=== PATIENT | female | born 1965 | race Caucasian/White ===

== ENCOUNTER 2020-02-25 07:50 | Outpatient (CLI) | payer BC, SELFPAY ==
--- NOTE | ~2020-02-25 | CT_ITS ---
EXAMINATION: CT soft tissue neck w con EXAM DATE: 02/25/2020 08:29 INDICATION: Localized lymph node enlargement. TECHNIQUE: Spiral CT of the neck was performed following intravenous injection of 75 mL Omnipaque 350 . Axial, coronal and sagittal images were reviewed. The dose-length product (DLP) for this examinat ion was 468.63 mGy-cm. The exposure was tailored according to patient size (auto mA exposure control ), and iterative reconstruction (ASIR) was used as additional dose reduction technique. There is no prior study for comparison. FINDINGS: There is a nodule of soft tissue which appears most likely to be arising from the left subm andibular gland, suspected most likely to be a submandibular gland neoplasm. A pathologically enlarge d lymph node is less likely. No other neck masses/lymph nodes identified. The thyroid gland is unrema rkable. The superior mediastinum is unremarkable. The airway is unremarkable. Parapharyngeal an d pre-glottic fat planes are preserved. The opacified vasculature is patent. The orbits are unrem arkable. Visualized sinuses and mastoid air cells are well aerated. There is a pleural-based nodule in the right lung apex measuring 5 mm average dimension, axial image 22, stable compared to 2012 and consistent with postinfectious residua. There is mild cervical spond ylosis. IMPRESSION: Left submandibular mass suspicious for primary neoplasm. Lymph node less likely. Recomme nd ENT consult for surgical excision. Reviewed, dictated and finalized at location A. IMPRESSION: Left submandibular mass suspicious for primary neoplasm. Lymph nod e less likely. Recommend ENT consult for surgical excision.
== END 2020-02-25 07:51 | disposition home or self-care (01) ==
PROVIDERS: PCP Family Medicine; Visit Provider Physician Assistant
DX: R59.0 Localized enlarged lymph nodes (principal)
CPT/HCPCS: 70491; Q9967

== ENCOUNTER 2020-06-25 08:54 | Emergency (ER) | payer BC, SELFPAY ==
--- NOTE | ~2020-06-25 | CT_ITS ---
EXAMINATION: CT abdomen pelvis w con DATE: 06/25/2020 11:34 INDICATION: Left lower quadrant abdominal pain TECHNIQUE: Computed tomography (CT) of the abdomen and pelvis was performed with 100 cc Omnipaque 350 intravenous contrast. The dose-length product was 426.04 mGy-cm. Automated exposure control and iter ative reconstruction technique were employed. COMPARISON: CT dated 07/31/2018. FINDINGS: Bibasilar dependent atelectasis. Multiple liver cysts. The spleen, pancreas, adrenal glands and kidneys are unremarkable. Gallbladder is present. There is apical normal thickening of the dista l descending and sigmoid colon. Colonic diverticulosis without definite focal diverticulitis. Tiny fa t-containing umbilical hernia. No significant vascular abnormality. No lymphadenopathy. Mild lower eveline mbar spondylosis. No evidence for free air or free fluid. IMPRESSION: 1. Abnormal thickening of the descending and sigmoid colon, suspicious for colitis. Reviewed, dictated and finalized at location A. DEFENSE ARTILLERY OFFICER IMPRESSION: 1. Abnormal thickening of the descending and sigmoid colon, suspicious for coli tis.
[2020-06-25 09:24] VITALS: BP 130/74; PULSE 93; RESP 20; TEMP 37.1; O2SAT 94
[2020-06-25 10:05] LABS: Basophils Percent Auto 0.5 % (0.2-1.2); Eosinophils Absolute Auto 0.2 K/mm3 (0-0.3); Eosinophils Percent Auto 2.6 % (0-4.4); Hematocrit 43.5 % (37.0-47.0); Hemoglobin 14.3 g/dL (12.0-15.0); Immature Granulocyte Absolute 0.02 K/mm3 (0.00-0.031); Immature Granulocyte Percent A 0.2 % (0-0.5); Lymphocytes Absolute Auto 1.77 K/mm3 (0.9-3.2); Mean Corpuscular HGB Conc 32.9 g/dl (32-36); Mean Corpuscular Hemoglobin 31.6 pg (26-34); Mean Corpuscular Volume 96.2 fl (80-100); Mean Platelet Volume 9.8 fl (7.4-10.4); Monocytes Absolute Auto 0.8 K/mm3 (0.1-0.6); Monocytes Percent Auto 9.7 % (2.6-8.5); Neutrophils Absolute Auto 5.2 K/mm3 (1.3-6.7); Platelet Count Result 336 k/mm3 (150-375); Red Blood Count 4.52 M/mm3 (4.2-5.4); Red Cell Distribution Width 13.6 % (11.5-14.5)
[2020-06-25 10:20] LABS: Alanine Aminotransferase 11 U/L (4-35); Alkaline Phosphatase 64 U/L (38-126); Anion Gap 7 mmol/L (8-16); Aspartate Amino Transferase 20 U/L (14-36); Bilirubin,Total 0.3 mg/dL (0.2-1.3); Blood Urea Nitrogen 16 mg/dL (7-17); Calcium 9.2 mg/dL (8.4-10.2); Carbon Dioxide 25 mmol/L (22-30); Chloride 106 mmol/L (98-107); Estimated CRCL calculation 79 ml/min; Estimated Glomerular Filt Rate > 60; Glucose 119 mg/dL (65-105); Lipase 56 U/L (23-300); Potassium 3.8 mmol/L (3.4-5.0); Sodium 138 mmol/L (137-145)
[2020-06-25 10:21] LABS: Add Urine Microscopic? YES; Appearance Urine Clear (Clear); Bacteria Urine Trace /hpf; Bilirubin Urine Negative (Negative); Blood Urine Negative (Negative); Color Urine Yellow (Yellow); Glucose Urine UA Negative (Negative); Ketones Urine Negative (Negative); Leukocyte Esterase Ur Trace LEU/UL (Negative); Mucus Urine Moderate /lpf; Nitrate Urine Negative (Negative); Protein Urine Negative (Negative); RBC Urine 0-2 /hpf (0-2); Specific Grav Ur 1.018 (1.001-1.035); Squamous Epithelial Cell Urine Moderate /hpf (Few); Urobilinogen Urine Negative mg/dL (<2.0); WBC Urine 0-3 /hpf
--- NOTE | 2020-06-25 10:21 | ED.ABDPAIN ---
HPI - Abdominal Pain General Chief Complaint: Abdominal Pain Stated Complaint: abd pain Time Seen by Provider: 06/25/20 09:05 Source: patient Mode of arrival: ambulatory Limitations: no limitations History of Present Illness HPI narrative: This patient is a 54 year old female who presents for evaluation of left lower abdominal pain. She states this pain has been present for 1 month. She was started on antibiotics by her PCP 1 month ago. She reports she was given 2 antibiotics and she completed the course. She states she has continued to have constant pain. She denies vomiting, diarrhea or fever. She denies urinary symptoms. She reports a history of kidney stones but she states this pain feels different. Pain Consistency: constant Quality: stabbing Exacerbating factors: movement Related Data Allergies Allergy/AdvReac Type Severity Reaction Status Date / Time hydrocodone Allergy Mild vomiting Verified 02/15/20 15:30 oxycodone Allergy Mild vomiting Verified 02/15/20 15:30 pamabrom Allergy Mild ELEVATED HR Verified 02/15/20 15:30 pyrilamine Allergy Mild ELEVATED HR Verified 02/15/20 15:30 aspirin Allergy Unknown Nausea Verified 02/15/20 15:30 codeine Allergy Unknown Unknown Verified 02/15/20 15:30 ibuprofen Allergy Unknown Unknown Verified 02/15/20 15:30 COATING ON SAUNDRA ASPIRIN Allergy Mild Vomiting Uncoded 02/15/20 15:30 Review of Systems Review of Systems: All systems reviewed & are unremarkable except as noted in HPI and below Constitutional: Constitutional: Denies chills and Denies fever(s) Respiratory: Respiratory: Denies cough and Denies dyspnea Gastrointestinal: Gastrointestinal: Reports abdominal pain, Denies nausea and Denies vomiting Genitourinary: Genitourinary: Denies hematuria and Denies dysuria [facility] Past Medical History Medical History (Updated 06/25/20 @ 12:47 by Selena Yang MD) Pleomorphic adenoma of submandibular gland Submandibular lymphadenopathy lymph node biopsy : pleomorphic adenoma/ benign Surgical History Surgical History (Updated 06/25/20 @ 10:28 by Selena Yang MD) History of endometrial ablation Family History Family History Mother Family history of alcoholism, Onset Age: 46 Family history of heart disease in male family member before age 55 Other Family history of malignant neoplasm Hypertension Social History Social History Smoking status: Current every day smoker Alcohol intake: current Exam Narrative: Exam Narrative: GENERAL: Well-appearing, well-nourished, and in no acute distress. HEAD: Normocephalic, atraumatic EYES: PERRLA and EOMI, conjunctiva clear without discharge THROAT:Mucous membranes moist, Oropharynx normal without erythema, exudate, peritonsillar swelling or fluctuance NECK: Supple, without lymphadenopathy or mass RESPIRATORY: No respiratory distress, Airway patent, Respirations non-labored, Clear to auscultation without rales, rhonchi or wheeze HEART: Regular rate and rhythm. No murmur heard. Normal peripheral pulses. ABDOMEN: Soft, LLQ tenderness, nondistended, normal active bowel sounds. No masses. No rebound or guarding, No organomegaly. EXTREMITIES: No edema, normal strength with full range of motion. SKIN: Warm, dry, normal color without rash NEURO: Alert and oriented x3. CN 2-12 grossly intact. No focal deficits. PSYCH: Normal mood and affect. 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 Date: 06/25/20 Time: 12:45 Vital Signs Vital signs: Vital Signs Temperature 98.7 F 06/25/20 09:24 Pulse Rate 93 06/25/20 09:24 Respiratory Rate 20 06/25/20 09
== END 2020-06-25 13:01 | disposition home or self-care (01) ==
PROVIDERS: Emergency Provider General Practice; PCP Family Medicine
DX: K52.9 Noninfective gastroenteritis and colitis, unspecified (principal); F17.200 Nicotine dependence, unspecified, uncomplicated
CPT/HCPCS: 36415; 74177; 80053; 81001; 83690; 85025; 99284; Q9967

== ENCOUNTER 2020-08-09 17:39 | Emergency (ER) | payer OTHER, BC, SELFPAY ==
--- NOTE | ~2020-08-09 | XR_ITS ---
EXAMINATION: XR wrist LT min 3V DATE: 08/09/2020 18:15 INDICATION: Left wrist pain, initial encounter TECHNIQUE: Posteroanterior, oblique, and lateral views of the left wrist were obtained. COMPARISON: 03/03/2015 FINDINGS: There is an acute, traumatic, closed, intra-articular fracture of the distal radius. There is a transverse ulnar styloid avulsion. Soft tissue swelling surrounds the fractures. No additional a cute osseous abnormality is identified. IMPRESSION: 1. Comminuted intra-articular distal radius fracture. 2. Ulnar styloid avulsion. Reviewed, dictated and finalized at location A. ER CARE CASE MANAGER
[2020-08-09 17:37] VITALS: BP 87/58; PULSE 60; RESP 16; TEMP 36.8; O2SAT 98
[2020-08-09 17:45] VITALS: BP 87/58; O2SAT 98
[2020-08-09 18:01] VITALS: BP 88/70; PULSE 49; RESP 17; O2SAT 97
[2020-08-09] MEDS: SODIUM CHLORIDE 0.9% IV 1,000 ML 999 ML IV CONT (18:03)
[2020-08-09 18:16] VITALS: BP 112/69; PULSE 55; RESP 18; O2SAT 98
[2020-08-09 18:20] LABS: Basophils Percent Auto 0.5 % (0.2-1.2); Eosinophils Absolute Auto 0.2 K/mm3 (0-0.3); Eosinophils Percent Auto 2.7 % (0-4.4); Hematocrit 41.9 % (37.0-47.0); Hemoglobin 13.4 g/dL (12.0-15.0); Immature Granulocyte Absolute 0.03 K/mm3 (0.00-0.031); Immature Granulocyte Percent A 0.4 % (0-0.5); Lymphocytes Absolute Auto 3.46 K/mm3 (0.9-3.2); Lymphocytes Percent Auto 43.8 % (18.3-44.2); Mean Corpuscular Hemoglobin 31.4 pg (26-34); Mean Corpuscular Volume 98.1 fl (80-100); Mean Platelet Volume 9.6 fl (7.4-10.4); Monocytes Absolute Auto 0.7 K/mm3 (0.1-0.6); Monocytes Percent Auto 8.2 % (2.6-8.5); Neutrophils Absolute Auto 3.5 K/mm3 (1.3-6.7); Neutrophils Percent Auto 44.4 % (45.5-73.1); Platelet Count Result 286 k/mm3 (150-375); Red Blood Count 4.27 M/mm3 (4.2-5.4); Red Cell Distribution Width 13.8 % (11.5-14.5); White Blood Count 7.9 K/mm3 (4.5-10.0)
--- NOTE | 2020-08-09 18:28 | ED.GENADULT ---
HPI - General Adult General Chief complaint: Fall Stated complaint: left wrist injury, hypotension Time Seen by Provider: 08/09/20 17:42 History of Present Illness HPI narrative: Patient is a 54-year-old who presents ER with left wrist pain status post slip and fall. Patient was at work when she slipped while doing the dishes and fell on her outstretched hand. Sudden onset pain to left wrist. In route by EMS patient had some nausea and vomiting. She is then found to be hypotensive in the 80s. Patient reports she did not eat today. She is not having any dizziness and has had no loss of consciousness. No numbness or tingling to her hand but has increased pain with any attempted range of motion. Related Data Allergies Allergy/AdvReac Type Severity Reaction Status Date / Time hydrocodone Allergy Mild vomiting Verified 07/01/20 14:54 oxycodone Allergy Mild vomiting Verified 07/01/20 14:54 pamabrom Allergy Mild ELEVATED HR Verified 07/01/20 14:54 pyrilamine Allergy Mild ELEVATED HR Verified 07/01/20 14:54 aspirin Allergy Unknown Nausea Verified 07/01/20 14:54 codeine Allergy Unknown Unknown Verified 07/01/20 14:54 ibuprofen Allergy Unknown Unknown Verified 07/01/20 14:54 COATING ON SAUNDRA ASPIRIN Allergy Mild Vomiting Uncoded 02/15/20 15:30 Review of Systems Review of Systems: All systems reviewed & are unremarkable except as noted in HPI and below Constitutional: Constitutional: Denies chills, Denies fever(s) and Denies weakness Gastrointestinal: Gastrointestinal: Denies abdominal pain, Reports nausea and Reports vomiting Musculoskeletal: Musculoskeletal: Reports arthralgias and Reports joint swelling Neurologic: Denies syncope, Denies focal weakness and Denies numbness [facility] Past Medical History Medical History Pleomorphic adenoma of submandibular gland Submandibular lymphadenopathy lymph node biopsy : pleomorphic adenoma/ benign Surgical History Surgical History History of endometrial ablation Family History Family History Mother Family history of alcoholism, Onset Age: 46 Family history of heart disease in male family member before age 55 Other Family history of malignant neoplasm Hypertension Social History Social History (Reviewed 07/01/20 @ 14:55 by Valerie Gordillo [facility]) Smoking status: Current some day smoker Alcohol intake: current Exam Narrative: Exam Narrative: GENERAL: Well-appearing, well-nourished, and in no acute distress. HEAD: Normocephalic, atraumatic. CHEST: Clear to auscultation. No respiratory distress. HEART: Regular rate and rhythm. Normal peripheral pulses. ABDOMEN: Soft, nontender, nondistended. EXTREMITIES: Focused exam left upper extremity reveals swelling and tenderness at the distal radius/wrist. Limited range of motion due to pain. No tenderness about the shoulder or elbow. Normal radial pulses and normal capillary refill. SKIN: Warm, dry, no rash. NEURO: Alert and oriented x3. Course Course Emergency Course: Discussed case with Dr. Gamboa. Patient be splinted and should call the office tomorrow for follow-up. Patient's blood pressure is significantly improved with IV fluid. Lab work urenarkable.. Vital Signs Vital signs: Vital Signs Temperature 98.2 F 08/09/20 17:37 Pulse Rate 60 08/09/20 17:37 Respiratory Rate 16 08/09/20 17:37 Blood Pressure 87/58 L 08/09/20 17:37 Pulse Oximetry 98 08/09/20 17:37 Temperature 98.2 F 08/09/20 17:37 Pulse Rate 60 08/09/20 17:37 Respiratory Rate 16 08/09/20 17:37 Blood Pressure 87/58 L 08/09/20 17:37 Pulse Oximetry 98 08/09/20 17:37 Procedures Orthopedic Splinting/Casting Injury #1: Splinting/Casting Date: 08/09/20 Splinting/Casting Time: 18:38 Side: left Upper Extremity Injury
[2020-08-09 18:33] LABS: Anion Gap 5 mmol/L (8-16); Blood Urea Nitrogen 12 mg/dL (7-17); Calcium 9.1 mg/dL (8.4-10.2); Carbon Dioxide 29 mmol/L (22-30); Chloride 105 mmol/L (98-107); Estimated CRCL calculation 79 ml/min; Estimated Glomerular Filt Rate > 60; Glucose 100 mg/dL (65-105); Potassium 3.7 mmol/L (3.4-5.0); Sodium 139 mmol/L (137-145)
[2020-08-09] MEDS: fentaNYL CITRATE INJ (*CRX) 100 MCG/2 ML VIAL 50 MCG IV PUSH (18:43)
[2020-08-09 19:16] VITALS: BP 115/78; PULSE 64; RESP 15; O2SAT 96
[2020-08-09 19:30] VITALS: BP 117/69; PULSE 70; RESP 16; O2SAT 96
== END 2020-08-09 19:30 | disposition home or self-care (01) ==
PROVIDERS: Emergency Provider Emergency Medicine; PCP Family Medicine
DX: S52.572A Other intraarticular fracture of lower end of left radius, initial encounter for closed fracture (principal); S52.612A Displaced fracture of left ulna styloid process, initial encounter for closed fracture; F17.200 Nicotine dependence, unspecified, uncomplicated; W01.0XXA Fall on same level from slipping, tripping and stumbling without subsequent striking against object, initial encounter
CPT/HCPCS: 29125; 36415; 73110; 80048; 85025; 96361; 96374; 99284; A4565; J3010; J7030

== ENCOUNTER → 2022-07-04 16:28 | Outpatient (CLI) | payer OTHER, SELFPAY ==
--- NOTE | ~2022-07-04 | XR_ITS ---
EXAM: XR foot LT min 3V DATE: 07/04/2022 16:41 HISTORY: medial left foot pain after rolling foot . COMPARISON: None. FINDINGS: Decreased mineralization. No fracture or dislocation. No lytic or blastic lesion. Mild davin lux valgus. Mild degenerative change at the first MTP joint. Plantar and Achilles enthesopathy. No er osion or periosteal change. Soft tissues within normal limits. IMPRESSION: No acute osseous finding in the left foot. Reviewed, dictated and finalized at location K. GE MANAGEMENT DIRECTOR
== END ==
PROVIDERS: PCP Physician Assistant; Visit Provider Physician Assistant
DX: M79.672 Pain in left foot (principal)
CPT/HCPCS: 73630

== ENCOUNTER 2022-08-08 11:43 | Emergency (ER) | payer OTHER, SELFPAY ==
[2022-08-08 11:50] VITALS: BP 105/49; PULSE 94; RESP 18; TEMP 37; O2SAT 97
--- NOTE | 2022-08-08 11:53 | ED.URI ---
HPI - URI/Sore Throat General Chief Complaint: Upper Respiratory Infection Stated Complaint: Sinus/Cough Time Seen by Provider: 08/08/22 11:53 Source: patient Mode of arrival: ambulatory Limitations: no limitations History of Present Illness HPI Narrative: Argelia is a 56-year-old female patient presenting to clinic today with complaints sinus congestion and a cough x5 days. She reports she had a virtual visit with her PCP yesterday and was prescribed Augmentin for sinusitis. States that she had a coughing fit at work today and her employer sent her home and wanted her to be re-evaluated. She states that she had a coughing fit this morning and was having shortness of breath at that time. MD elicited complaint: cough, nasal congestion, sinus pain and other ( Shortness of breath) Related Data Allergies Allergy/AdvReac Type Severity Reaction Status Date / Time hydrocodone Allergy Mild vomiting Verified 08/08/22 11:46 oxycodone Allergy Mild vomiting Verified 08/08/22 11:46 pamabrom Allergy Mild ELEVATED HR Verified 08/08/22 11:46 pyrilamine Allergy Mild ELEVATED HR Verified 08/08/22 11:46 aspirin Allergy Unknown Nausea Verified 08/08/22 11:46 codeine Allergy Unknown Unknown Verified 08/08/22 11:46 ibuprofen Allergy Unknown Unknown Verified 08/08/22 11:46 COATING ON SAUNDRA ASPIRIN Allergy Mild Vomiting Uncoded 08/08/22 11:46 Review of Systems Review of Systems: Pertinent positives per HPI. Patient denies any fever, chills, rash, headache, visual changes, dizziness, shortness of breath, chest pain, palpitations, nausea, vomiting, diarrhea, constipation, abdominal pain, or any urinary issues. [facility] Past Medical History Medical History Pleomorphic adenoma of submandibular gland Submandibular lymphadenopathy lymph node biopsy : pleomorphic adenoma/ benign Surgical History Surgical History History of endometrial ablation Family History Family History Mother Family history of alcoholism, Onset Age: 46 Family history of heart disease in male family member before age 55 Other Family history of malignant neoplasm Hypertension Social History Social History Smoking status: Current every day smoker Alcohol intake: current Lack of Transportation: No Lack of Food: Never True Current Housing: I Have Housing Concerned About Future Housing: No Difficulty Paying Gas/Electric Bills: No Difficulty Paying for Meds: No Currently Unemployed: No Education: High School Diploma/GED Difficulty w/ Childcare or Family Care: No Comments At the time of my signature, I reviewed and agree with the nursing past medical, surgical, social, and family history. There is no relevant family history pertinent to the patient complaint. Exam Narrative: General: Well-developed, well nourished, in no apparent distress Head: Normocephalic, atraumatic Eyes: Pupils equally round and reactive to light bilaterally, EOM intact, sclera and conjunctive clear, no discharge, lids normal Ears: TMs intact and clear, ear canals clear, no drainage, grossly hearing normal. Nose: Nares patent, no discharge, no inflammation, no sinus tenderness. Mouth: Oral pharynx without lesions or masses, good dentition, MMM. Neck: Supple, trachea midline, no enlargement of anterior or posterior cervical nodes, no thyroid masses or goiter palpable. Cardio: Regular rate and rhythm, s1 and s2 normal, no murmur appreciated. Resp: Clear to auscultation bilaterally, no rhonchi, rales, wheezing or rubs Course Course Emergency Course: Portions of this record may have been created with voice recognition software. Level of Care: Express Care Visit Vital Signs Vital signs: Vital Signs Temperature 37.0 C 01
[2022-08-08] MEDS: ALBUTEROL SULFATE NEB 2.5 MG/3 ML INH INHALATION (12:07)
[2022-08-08] MEDS: IPRATROPIUM BR 0.02% INH SOLN 0.5 MG/2.5 ML VIAL INHALATION (12:07)
== END 2022-08-08 12:31 | disposition home or self-care (01) ==
PROVIDERS: Emergency Provider Nurse Practitioner Family; PCP Family Medicine
DX: J40 Bronchitis, not specified as acute or chronic (principal); J98.01 Acute bronchospasm; F17.200 Nicotine dependence, unspecified, uncomplicated
CPT/HCPCS: 94640; 99213; G0463

== ENCOUNTER 2022-08-19 17:25 | Emergency (ER) | payer OTHER, SELFPAY ==
--- NOTE | ~2022-08-19 | CT_ITS ---
EXAMINATION: CT abdomen pelvis w con DATE: 08/19/2022 22:46 INDICATION: Left lower quadrant abdominal pain. TECHNIQUE: Computed tomography (CT) of the abdomen and pelvis was performed with 100 mL Omnipaque 350 intravenous contrast. Automated exposure control and iterative reconstruction technique were employe d. The dose-length product was 582.48 mGy-cm. COMPARISON: CT abdomen and pelvis 06/25/2020 FINDINGS: The visualized portions of the lung bases demonstrate mild atelectasis. No pleural effusion . The heart size is normal. No pericardial effusion. There are cysts in the liver measuring up to 2.6 cm . The gallbladder, spleen, pancreas, and left adrenal gland are normal. Again seen are masses in right adrenal gland measuring up to 2.0 cm measuring soft tissue attenuation, likely adenomas. Right kidney is normal. There is cortical thinning of left kidney. There is a 7 mm cyst in left kidney. The re are 4 stones in left kidney measuring up to 2 mm. There are scattered diverticula in the colon. Th ere is wall thickening of the sigmoid colon with adjacent fat stranding, consistent with diverticulit is. There are no dilated loops of bowel. The appendix is normal. There are no pathologically enlarged lymph nodes. There is trace pelvic ascites. There is severe lower lumbar spondylosis. IMPRESSION: 1. Sigmoid diverticulitis. No perforation or abscess. Reviewed, dictated and finalized at location A. ER INSPECTOR
[2022-08-19 17:48] VITALS: BP 121/86; PULSE 107; RESP 18; TEMP 36.4; O2SAT 98
[2022-08-19 18:01] LABS: Basophils Absolute Auto 0.1 K/mm3 (0.0-0.1); Basophils Percent Auto 0.4 % (0.2-1.2); Eosinophils Absolute Auto 0.2 K/mm3 (0-0.3); Eosinophils Percent Auto 1.3 % (0-4.4); Hematocrit 43.8 % (37.0-47.0); Hemoglobin 14.1 g/dL (12.0-15.0); Immature Granulocyte Absolute 0.04 K/mm3 (0.00-0.031); Immature Granulocyte Percent A 0.3 % (0-0.5); Lymphocytes Absolute Auto 2.21 K/mm3 (0.9-3.2); Lymphocytes Percent Auto 16.8 % (18.3-44.2); Mean Corpuscular HGB Conc 32.2 g/dl (32-36); Mean Corpuscular Hemoglobin 31.1 pg (26-34); Mean Corpuscular Volume 96.5 fl (80-100); Monocytes Absolute Auto 1.3 K/mm3 (0.1-0.6); Monocytes Percent Auto 9.7 % (2.6-8.5); Neutrophils Absolute Auto 9.4 K/mm3 (1.3-6.7); Neutrophils Percent Auto 71.5 % (45.5-73.1); Platelet Count Result 322 k/mm3 (150-375); Red Blood Count 4.54 M/mm3 (4.2-5.4); Red Cell Distribution Width 13.5 % (11.5-14.5); White Blood Count 13.1 K/mm3 (4.5-10.0)
[2022-08-19 18:11] LABS: Alanine Aminotransferase 19 U/L (6-35); Albumin Level 4.2 g/dL (3.5-5.1); Alkaline Phosphatase 78 U/L (38-126); Anion Gap 7 mmol/L (8-16); Aspartate Amino Transferase 22 U/L (14-36); Bilirubin,Total 0.5 mg/dL (0.2-1.3); Blood Urea Nitrogen 10 mg/dL (7-17); Calcium 9.2 mg/dL (8.4-10.2); Carbon Dioxide 27 mmol/L (22-30); Chloride 104 mmol/L (98-107); Estimated CRCL calculation 81 ml/min; Estimated Glomerular Filt Rate > 60; Glucose 92 mg/dL (65-110); Potassium 3.6 mmol/L (3.4-5.0); Sodium 138 mmol/L (137-145)
[2022-08-19 18:51] LABS: Appearance Urine Slightly Cloudy (Clear); Bilirubin Urine Negative (Negative); Blood Urine Negative (Negative); Color Urine Light Yellow (Yellow); Glucose Urine UA Negative (Negative); Ketones Urine Negative (Negative); Leukocyte Esterase Ur Trace LEU/UL (Negative); Nitrate Urine Negative (Negative); Protein Urine Negative (Negative); Specific Grav Ur 1.015 (1.001-1.035); Urobilinogen Urine 0.2 mg/dL (<2.0); pH Urine 6.5 (5.0-9.0)
[2022-08-19 18:57] LABS: Bacteria Urine Trace /hpf; Mucus Urine Rare /lpf; RBC Urine 0-2 /hpf (0-2); Squamous Epithelial Cell Urine Rare /hpf (Few); WBC Urine 0-3 /hpf
[2022-08-19 19:00] LABS: Add Urine Microscopic? YES
[2022-08-19 20:53] VITALS: BP 133/72; PULSE 87; RESP 18; O2SAT 99
--- NOTE | 2022-08-19 21:27 | ED.GENADULT ---
HPI - General Adult General Chief complaint: Abdominal Pain Stated complaint: left flank pain Time Seen by Provider: 08/19/22 20:47 History of Present Illness HPI narrative: 56-year-old female with history of kidney stones and diverticulitis presented to the emergency department for evaluation of left lower quadrant pain. Patient reports the pain started mild and was yesterday. This morning when the patient woke the pain was more intense and localized to the left lower quadrant. Patient states she has been on amoxicillin for chronic bronchitis. Patient states she has been having soft stools over the last few days. Patient denies any melena. Patient states he does have history of hemorrhoids and does have some blood when she wiped but denies any significant rectal bleeding. Patient declined any medications for pain control. Reports her last history of diverticulitis was approximately since months ago. Patient has never had any surgeries for diverticulitis. Patient does not currently follow-up with GI. Patient's last colonoscopy was approximately 4 years ago and this was done at [place]. Related Data Allergies Allergy/AdvReac Type Severity Reaction Status Date / Time hydrocodone Allergy Mild vomiting Verified 08/19/22 17:50 oxycodone Allergy Mild vomiting Verified 08/19/22 17:50 pamabrom Allergy Mild ELEVATED HR Verified 08/19/22 17:50 pyrilamine Allergy Mild ELEVATED HR Verified 08/19/22 17:50 aspirin Allergy Unknown Nausea Verified 08/19/22 17:50 codeine Allergy Unknown Unknown Verified 08/19/22 17:50 ibuprofen Allergy Unknown Unknown Verified 08/19/22 17:50 COATING ON SAUNDRA ASPIRIN Allergy Mild Vomiting Uncoded 08/08/22 11:46 Review of Systems Review of Systems: CONSTITUTIONAL: Denies fever, chills, or sweats. EYES: Denies visual changes, redness, or discharge. ENT: Denies rhinorrhea, congestion, sore throat, or otalgia. CARDIOVASCULAR: Denies chest pain, palpitations, or edema. RESPIRATORY: Denies cough or dyspnea. GASTROINTESTINAL: See HPI GENITOURINARY: Denies dysuria or hematuria. SKIN: Denies rash or itching. MUSCULOSKELETAL: Denies back pain, joint pain, or myalgia. NEUROLOGIC: Denies headache, numbness, or weakness. [facility] Past Medical History Medical History Pleomorphic adenoma of submandibular gland Submandibular lymphadenopathy lymph node biopsy : pleomorphic adenoma/ benign Surgical History Surgical History History of endometrial ablation Family History Family History Mother Family history of alcoholism, Onset Age: 46 Family history of heart disease in male family member before age 55 Other Family history of malignant neoplasm Hypertension Social History Social History Smoking status: Current every day smoker Alcohol intake: current Lack of Transportation: No Lack of Food: Never True Current Housing: I Have Housing Concerned About Future Housing: No Difficulty Paying Gas/Electric Bills: No Difficulty Paying for Meds: No Currently Unemployed: No Education: High School Diploma/GED Difficulty w/ Childcare or Family Care: No Exam Narrative: APPEARANCE: Well appearing, no pain, no distress, well-nourished. HEAD: normocephalic, atraumatic. EYES: PERRLA/EOMI, conjunctivae clear. NOSE: Normal no drainage NECK: Supple. No adenopathy, no masses. RESPIRATORY: Airway patent, respirations nonlabored. Clear to auscultation bilaterally, no rales, rhonchi, wheezing. CARDIOVASCULAR: Regular rate and rhythm without murmurs rubs or gallops. ABDOMINAL: Suprapubic and left lower quadrant tenderness to palpation., Normal bowel sounds MUSCULOSKELETAL: Moves all extremities. Strength/ROM intact, No edema, No calf tenderness. NEURO: Alert. Cr
[2022-08-19] MEDS: SODIUM CHLORIDE 0.9% IV 1,000 ML 999 ML IV CONT (21:33)
[2022-08-19 21:45] VITALS: BP 130/73; PULSE 79; RESP 16; O2SAT 100
--- NOTE | 2022-08-19 22:10 | PC.NURSE ---
Patient resting on stretcher, no requests at this time. Patient reports intermittent left lower quadrant pain, denies nausea or vomiting.
[2022-08-19 22:30] VITALS: BP 138/74; PULSE 79; RESP 14; O2SAT 99
[2022-08-19 23:00] VITALS: BP 127/73; PULSE 84; O2SAT 99
[2022-08-19] MEDS: metroNIDAZOLE 250 MG TABLET 500 MG PO (23:11)
[2022-08-19] MEDS: CIPROFLOXACIN 500 MG TAB PO (23:11)
== END 2022-08-19 23:21 | disposition home or self-care (01) ==
PROVIDERS: Emergency Medicine; Emergency Provider Emergency Medicine; PCP Family Medicine
DX: K57.32 Diverticulitis of large intestine without perforation or abscess without bleeding (principal); F17.200 Nicotine dependence, unspecified, uncomplicated
CPT/HCPCS: 36415; 74177; 80053; 81001; 85025; 96360; 96361; 99284; A9270; J7030; Q9967

== ENCOUNTER 2023-04-08 07:41 | Outpatient (CLI) | payer OTHER, SELFPAY ==
--- NOTE | ~2023-04-08 | MM_ITS ---
EXAMINATION: MM screening yue BI w radha HISTORY: Screening TECHNIQUE: Craniocaudal and mediolateral oblique 3-D tomosynthesis images were obtained and synthetic 2-D images were generated. CAD analysis was submitted and interpreted. COMPARISON: 11/26/2016 BREAST PARENCHYMAL COMPOSITION: Breast composed of scattered areas of fibroglandular density. FINDINGS: There is no evidence of suspicious mass, calcification, or architectural distortion to sugg est malignancy in either breast. There has been no suspicious interval change. IMPRESSION: 1. No mammographic evidence of malignancy. 2. Recommend routine screening mammography in one year. BI-RADS Category 1: Negative Reviewed, dictated and finalized at location A.
== END 2023-04-08 07:42 | disposition home or self-care (01) ==
PROVIDERS: PCP Family Medicine; Visit Provider Family Medicine
DX: Z12.31 Encounter for screening mammogram for malignant neoplasm of breast (principal)
CPT/HCPCS: 77063; 77067

== ENCOUNTER 2024-12-15 17:22 | Outpatient (CLI) | payer OTHER, SELFPAY ==
--- NOTE | ~2024-12-15 | CT_ITS ---
CT abdomen pelvis wo con Ordering provider: Annie Givens MD History: 58 years Female with . R10.32 - Left lower quadrant pain . Comparison: August 19, 2022 Technique: CT abdomen and pelvis without IV and without oral contrast. Automated exposure control and iterative reconstruction technique were employed. The dose-length product was 273.61 mGy-cm. Findings: VISUALIZED LOWER CHEST: Dependent atelectatic changes. UPPER ABDOMINAL ORGANS: Liver: Hypodensities unchanged from previous examination suggestive of cysts. Seen in segment #7 in the previous study is not demonstrated. Gallbladder: Normal. Spleen: Normal. Stomach/duodenum: Normal. Pancreas: Normal. Adrenals: Adenoma unchanged from previous examination. Kidneys: Tiny stone in the right kidney lower pole. Tiny stone in the left kidney upper pole unchange d. Tiny stone in the left kidney mid pole unchanged. stone seen in the left kidney lower pole unchanged. PELVIC ORGANS: The bladder is underfilled with thickened wall. Evaluation for cystitis advised. BOWEL AND MESENTERY: Colon: Mild sigmoid diverticulosis without diverticulitis. Normal appendix. Small Bowel: Normal. No obstruction. Peritoneum/mesentery: No free air or free fluid. No mesenteric lymphadenopathy. RETROPERITONEUM: Mild atheromatous disease of the abdominal aorta. No retroperitoneal lymphadenopat hy. MUSCULOSKELETAL: Superficial soft tissues: A fat-containing umbilical hernia. Otherwise, The superficial soft tissues are normal. Bones: Age appropriate degenerative changes of the spine. Bilateral sacroiliitis. IMPRESSION: 1. Bilateral kidney stones. 2. Multiple liver cysts unchanged. 3. Right adrenal adenoma unchanged. 4. No evidence of appendicitis, diverticulitis or intestinal obstruction. Reviewed, dictated and finalized at location A.
--- OUTSIDE RECORDS SUMMARY | 2024-12-15 17:26 | XMS_ITS | Continuity of Care Document ---
Author Organization [facility] Address [address] [place] [address] Phone Care Team Providers Care Cops Name Role Phone Luciana OT/Pérez FENG Unavailable Unavailable Procedures Procedure Date Therapeutic Activities Hot or Cold Pack Therapeutic Exercise Manual Therapy Therapeutic Activities Therapeutic Exercise Manual Therapy Hot or Cold Pack Therapeutic Exercise Therapeutic Activities Manual Therapy Hot or Cold Pack Therapeutic Activities Therapeutic Exercise Hot or Cold Pack Manual Therapy Progress Note Therapeutic Activities Therapeutic Exercise Hot or Cold Pack Manual Therapy Therapeutic Activities Hot or Cold Pack Manual Therapy Therapeutic Exercise Therapeutic Activities OT Evaluation Low Complexity Manual Therapy Therapeutic Exercise Hot or Cold Pack Advance Directives Directive Yes / No Effective Date File Name No Information Encounters Encounter Description Practice Location Reason(s) For Visit Diagnoses Date Provider Providers Copied on Encounter [facility], [address], [place], [place], [id number], [place] tel:[phone] [place] No Information Luciana Ortez. . Referring Provider: Jv Rogers [address], [place], [address]. tel:[phone] [facility] [address], [place], [place], [id number], [place] tel:[phone] [place] No Information Patrick Kesha. . Referring Provider: Jv Rogers [address], [place], [address]. tel:[phone] [facility] [address], [place], [place], [id number], [place] tel:[phone] [place] No Information Patrick Kesha. . Referring Provider: Jv Rogers [address], [place], [address]. tel:[phone] [facility] [address], [place], [place], [id number], [place] tel:[phone] [place] No Information Patrick Kesha. . Referring Provider: Jv Rogers [address], [place], [address]. tel:[phone] [facility] [address], [place], [place], [id number], [place] tel:[phone] [place] No Information Jannie Kesha. . Referring Provider: Jv Rogers [address], [place], [address]. tel:[phone] [facility] [address], [place], [place], [id number], [place] tel:[phone] [place] No Information Patrick Kesha. . Referring Provider: Jv Rogers [address], [place], [address]. tel:[phone] [facility], [place], [place], [id number], [place] tel:[phone] [place] No Information Jannie Rebolledo. . Referring Provider: Tish Cyr [address], [place], [address]. tel:[phone] Family History Family Member Type Diagnosis Age At Onset No Information Payers Payer name Insurance type Covered constitution party ID Authorearla lolita(s) [employer] EPO WC SP WC [id number] Social History Type Description Quantity Date Captured Comments Sex Female Smoking Status No Information Chief Complaint And Reason For Visit No Information Reason For Referral Reason For Referral No Information History Of Present Illness Encounter Date Complaint History Of Prese nt Illness No Information Functional Status Date Functional Assessmen t No Information Instructions Date Instruction Additional Infor mation Giving encouragement to exercise Related to Overweight Giving encouragement to exercise Related to Overweight Assessments Type Assessment Date No Information Patient Care Teams Name Effective Dates (start - stop) Status Members No Information
== END 2024-12-15 17:23 | disposition home or self-care (01) ==
PROVIDERS: PCP Family Medicine; Visit Provider Family Medicine
DX: N20.0 Calculus of kidney (principal); K76.89 Other specified diseases of liver; D35.01 Benign neoplasm of right adrenal gland
CPT/HCPCS: 74176